=== PATIENT | female | born 1970 | race Caucasian/White ===

== ENCOUNTER 2017-12-27 20:13 | Emergency (ER) | payer BC ==
[~2017-12-27] VITALS: Ht 172.7 cm; Wt 88.5 kg
[2017-12-27] MEDS ORDERED: ONDANSETRON ODT 4 MG ONE (21:11)
[2017-12-27] MEDS ORDERED: MORPHINE SULFATE 4 MG/ML, 1ML ONE (21:11)
[2017-12-27 21:28] LABS: ALANINE AMINOTRANSFERASE 19 U/L (12-78); ALBUMIN 3.7 g/dL (3.4-5.0); ANION GAP 7 mmol/L (5-15); CALCIUM 8.2 mg/dL (8.5-10.1); CHLORIDE 110 mmol/L (98-107); CREATININE 0.77 mg/dL (0.55-1.02)
[2017-12-27 21:29] LABS: BASOPHILS # (AUTO) 0.08 x10^3/uL (0-0.1); BASOPHILS % (AUTO) 1 % (0-1); EOSINOPHILS # (AUTO) 0.56 x10^3/uL (0-0.4); EOSINOPHILS % (AUTO) 5 % (1-7); LYMPHOCYTES # (AUTO) 3.36 x10^3/uL (1-3.4); LYMPHOCYTES % (AUTO) 28 % (22-44); MD NO; MEAN CORPUSCULAR HEMOGLOBIN 31.6 pg (27.0-34.8); MEAN CORPUSCULAR HGB CONC 33.8 g/dL (32.4-35.8); MEAN CORPUSCULAR VOLUME 93.6 fL (80-100); MEAN PLATELET VOLUME 10.5 fL (7.4-10.4); MONOCYTES # (AUTO) 0.66 x10^3/uL (0.2-0.8); MONOCYTES % (AUTO) 5 % (2-9); NEUTROPHILS # (AUTO) 7.51 x10^3/uL (1.8-6.8); NEUTROPHILS % (AUTO) 62 % (42-75); PLATELET COUNT 281 x10^3/uL (130-400); RED CELL DISTRIBUTION WIDTH 15.3 % (9.6-15.2)
[2017-12-27 21:30] LABS: MICROSCOPIC NOT IND
[2017-12-27] MEDS ORDERED: SODIUM CHLORIDE FLUSH 10ML SYR IVF ONE (21:30)
[2017-12-27] MEDS ORDERED: ONDANSETRON ODT 4 MG PO ONE (21:30)
[2017-12-27] MEDS ORDERED: MORPHINE SULFATE 4 MG/ML, 1ML IVPush PRN (21:30)
[2017-12-27 21:31] LABS: ALKALINE PHOSPHATASE 87 U/L (45-117); BILIRUBIN,TOTAL 0.2 mg/dL (0.2-1.0); TOTAL PROTEIN 6.7 g/dL (6.4-8.2)
[2017-12-27 21:34] LABS: CULTURE INDICATED? NO
[2017-12-27] MEDS ORDERED: LACT1CAP37 PO (21:42)
[2017-12-27] MEDS ORDERED: DIPH1TAB PO (21:42)
[2017-12-27] MEDS ORDERED: OXYC-302 PO (21:42)
[2017-12-27] MEDS ORDERED: PARO30TA3 PO (21:42)
[2017-12-27 22:40] VITALS: BP 123/82
== END 2017-12-27 23:10 | disposition home or self-care (01) ==
LOC: ED 23:00
DX: R10.13 Epigastric pain (principal); R50.9 Fever, unspecified; R19.7 Diarrhea, unspecified; G89.29 Other chronic pain
CPT/HCPCS: 36415; 74021; 76700; 80053; 81003; 83690; 85025; 96374; 99285; Q0162

== ENCOUNTER 2018-10-16 10:07 | Inpatient (IN) | payer BC ==
[~2018-10-16] VITALS: Ht 166.4 cm; Wt 86.7 kg
[~2018-10-16 10:07] MED LIST: ACET-1600 PO; ALPR-475 PO; AMOX1TAB64 PO; BUPIVACAINE/EPI 0.5% 1:200K ONE; DIPH1TAB PO; ENOXAPARIN 40 MG/0.4 ML SQ SCH; FLUORESCEIN SODIUM 500 MG/5 ML ONE; INDOCYANINE GREEN 25 MG VIAL ONE; LACT1CAP37 PO; ONDA4TAB7 PO; OXYC-302 PO; PARO30TA3 PO; PARO40TA61 PO; THRIVE PO
[2018-10-16] MEDS ORDERED: LACTATED RINGERS 1,000 ML IV SCH (10:40)
[2018-10-16 11:05] VITALS: BP 106/72
[2018-10-16] MEDS ORDERED: GABAPENTIN 300 MG CAPSULE PO ONE (11:30)
[2018-10-16] MEDS ORDERED: ACETAMINOPHEN 500 MG TABLET PO ONE (11:30)
[2018-10-16] MEDS ORDERED: OxyconTIN ER 20 MG TAB.ER PO ONE (11:30)
[2018-10-16] MEDS ORDERED: FAMOTIDINE 20 MG/2 ML IVPush ONE (11:30)
[2018-10-16] MEDS ORDERED: FENTANYL PF 250 MCG/5ML ONE (11:36)
[2018-10-16] MEDS ORDERED: MIDAZOLAM 1 MG/ML, 2ML ONE (11:36)
[2018-10-16] MEDS ORDERED: LABETALOL 5 MG/ML SYRINGE IV PRN (14:00)
[2018-10-16] MEDS ORDERED: hydrALAzine 20 MG/ML, 1ML IV PRN (14:00)
[2018-10-16] MEDS ORDERED: MEPERIDINE/PF 25MG/0.5ML IVPush PRN (14:00)
[2018-10-16] MEDS ORDERED: OXYcodone 5 MG/5 ML ORAL.SOL UDC PO PRN (14:00)
[2018-10-16] MEDS ORDERED: PROMETHAZINE 25 MG/ML, 1ML IV PRN (14:00)
[2018-10-16] MEDS ORDERED: ONDANSETRON 2MG/ML, 2ML IV PRN ×2 (14:00→19:00)
[2018-10-16] MEDS ORDERED: MIDAZOLAM 1 MG/ML, 2ML IV PRN (14:00)
[2018-10-16] MEDS ORDERED: CEFOTETAN PMX 1GM/50ML 50 ML ONE ×2 (14:58)
[2018-10-16] MEDS ORDERED: ONDANSETRON 2MG/ML, 2ML ONE (14:58)
[2018-10-16] MEDS ORDERED: PROPOFOL 10 MG/ML, 20ML ONE ×2 (14:58)
[2018-10-16] MEDS ORDERED: ROCURONIUM 10MG/ML,5ML ONE ×2 (14:58)
[2018-10-16] MEDS ORDERED: DEXAMETHASONE 4 MG/ML, 1ML ONE (14:58)
[2018-10-16] MEDS ORDERED: GLYCOPYRROLATE 0.2MG/1ML, 5ML ONE (15:01)
[2018-10-16] MEDS ORDERED: NEOSTIGMINE 1 MG/ML, 10ML ONE (15:01)
[2018-10-16] MEDS ORDERED: FENTANYL PF 100 MCG/2ML ONE (15:22)
[2018-10-16] MEDS ORDERED: HYDROmorphone 1 MG/ML, 1ML VIAL ONE (15:22)
[2018-10-16] MEDS: HYDROmorphone 2 MG/ML, 1ML IVPush PRN ×2 (15:27→15:43)
[2018-10-16] MEDS: FENTANYL PF 100 MCG/2ML IV PRN ×2 (15:33→15:58)
[2018-10-16] MEDS ORDERED: OXYcodone 5 MG/5 ML ORAL.SOL UDC ONE (15:40)
[2018-10-16] MEDS ORDERED: KETOROLAC 30 MG/1 ML ONE (15:40)
[2018-10-16] MEDS ORDERED: MEPERIDINE/PF 25MG/ML,1ML ONE (16:04)
[2018-10-16] MEDS ORDERED: LORazepam 2 MG/ML, 1ML IVPush PRN (19:00)
[2018-10-16] MEDS ORDERED: DEXAMETHASONE 4 MG/ML, 1ML IVPush PRN (19:00)
[2018-10-16] MEDS ORDERED: TRAZODONE 50MG TABLET PO PRN (19:00)
[2018-10-16] MEDS ORDERED: HALOPERIDOL 5 MG/ML IVPush PRN (19:00)
[2018-10-16] MEDS ORDERED: SCOPOLAMINE PATCH, 1.5MG PATCH.TD72 TD PRN (19:00)
[2018-10-16] MEDS ORDERED: DIPHENHYDRAMINE 50 MG/ML, 1ML IVPush PRN (19:00)
[2018-10-16] MEDS ORDERED: LORazepam 1MG TABLET PO PRN (19:00)
[2018-10-16] MEDS ORDERED: CALCIUM CARBONATE 500 MG TAB.CHEW PO PRN (19:00)
[2018-10-16] MEDS ORDERED: DIPHENHYDRAMINE 25 MG CAPSULE PO PRN (19:00)
[2018-10-16] MEDS: OXYcodone IR 5MG TABLET PO PRN ×2 (19:54→23:01)
[2018-10-16] MEDS: ACETAMINOPHEN 500 MG TABLET PO SCH (19:54)
[2018-10-16] MEDS: LACTATED RINGERS 1,000 ML IV SCH (20:05)
[2018-10-16] MEDS: MORPHINE SULFATE 4 MG/ML, 1ML IVPush PRN (20:44)
[2018-10-16] MEDS: PAROXETINE 20 MG TABLET PO SCH (21:25)
[2018-10-16 21:54] VITALS: BP 100/60
[2018-10-16] MEDS: KETOROLAC 30 MG/1 ML IVPush SCH (22:07)
[2018-10-16 23:06] VITALS: BP 96/56
[2018-10-17] MEDS: ACETAMINOPHEN 500 MG TABLET PO SCH ×4 (01:00→18:33)
[2018-10-17] MEDS: MORPHINE SULFATE 4 MG/ML, 1ML IVPush PRN ×5 (01:00→20:54)
[2018-10-17] MEDS: OXYcodone IR 5MG TABLET PO PRN ×7 (02:04→22:51)
[2018-10-17 03:54] LABS: BASOPHILS # (AUTO) 0.02 x10^3/uL (0-0.1); BASOPHILS % (AUTO) 0 % (0-1); EOSINOPHILS % (AUTO) 0 % (1-7); LYMPHOCYTES # (AUTO) 1.05 x10^3/uL (1-3.4); LYMPHOCYTES % (AUTO) 9 % (22-44); MD NO; MEAN CORPUSCULAR HEMOGLOBIN 32.4 pg (27.0-34.8); MEAN CORPUSCULAR HGB CONC 33.9 g/dL (32.4-35.8); MEAN CORPUSCULAR VOLUME 95.5 fL (80-100); MONOCYTES # (AUTO) 0.47 x10^3/uL (0.2-0.8); MONOCYTES % (AUTO) 4 % (2-9); NEUTROPHILS # (AUTO) 9.74 x10^3/uL (1.8-6.8); NEUTROPHILS % (AUTO) 86 % (42-75); PLATELET COUNT 219 x10^3/uL (130-400); RED BLOOD COUNT 3.56 x10^6/uL (3.82-5.3); RED CELL DISTRIBUTION WIDTH 13.7 % (9.6-15.2)
[2018-10-17 03:55] VITALS: BP 98/63
[2018-10-17 04:01] LABS: ALBUMIN 3.6 g/dL (3.4-5.0); ANION GAP 6 mmol/L (5-15); CALCIUM 8.9 mg/dL (8.5-10.1); CHLORIDE 110 mmol/L (98-107); CREATININE 0.88 mg/dL (0.55-1.02)
[2018-10-17] MEDS: KETOROLAC 30 MG/1 ML IVPush SCH ×4 (04:02→21:40)
[2018-10-17 06:52] VITALS: BP 100/63
[2018-10-17] MEDS: ENOXAPARIN 40 MG/0.4 ML SQ SCH (08:17)
[2018-10-17 14:16] VITALS: BP 96/61
[2018-10-17] MEDS: LACTATED RINGERS 1,000 ML IV SCH (15:01)
[2018-10-17 20:22] VITALS: BP 101/65
[2018-10-17] MEDS: PAROXETINE 20 MG TABLET PO SCH (20:54)
[2018-10-18] MEDS: ACETAMINOPHEN 500 MG TABLET PO SCH ×2 (00:52→06:42)
[2018-10-18] MEDS: KETOROLAC 30 MG/1 ML IVPush SCH ×2 (03:49→09:38)
[2018-10-18] MEDS: OXYcodone IR 5MG TABLET PO PRN ×3 (03:49→10:41)
[2018-10-18 04:28] LABS: BASOPHILS # (AUTO) 0.05 x10^3/uL (0-0.1); BASOPHILS % (AUTO) 1 % (0-1); EOSINOPHILS # (AUTO) 0.34 x10^3/uL (0-0.4); EOSINOPHILS % (AUTO) 4 % (1-7); LYMPHOCYTES % (AUTO) 31 % (22-44); MD NO; MEAN CORPUSCULAR HEMOGLOBIN 32.1 pg (27.0-34.8); MEAN CORPUSCULAR HGB CONC 33.6 g/dL (32.4-35.8); MEAN CORPUSCULAR VOLUME 95.6 fL (80-100); MEAN PLATELET VOLUME 9.8 fL (7.4-10.4); MONOCYTES # (AUTO) 0.52 x10^3/uL (0.2-0.8); MONOCYTES % (AUTO) 6 % (2-9); NEUTROPHILS # (AUTO) 5.47 x10^3/uL (1.8-6.8); NEUTROPHILS % (AUTO) 60 % (42-75); PLATELET COUNT 197 x10^3/uL (130-400); RED BLOOD COUNT 3.24 x10^6/uL (3.82-5.3); RED CELL DISTRIBUTION WIDTH 13.9 % (9.6-15.2)
[2018-10-18 04:34] LABS: ALBUMIN 3.1 g/dL (3.4-5.0); ANION GAP 6 mmol/L (5-15); CALCIUM 8.3 mg/dL (8.5-10.1); CHLORIDE 109 mmol/L (98-107); CREATININE 1.11 mg/dL (0.55-1.02)
[2018-10-18 05:13] VITALS: BP_SYST 80; BP_SYST 82; BP_DIAS 40; BP_DIAS 46
[2018-10-18 09:35] VITALS: BP 95/59
[2018-10-18] MEDS: ENOXAPARIN 40 MG/0.4 ML SQ SCH (09:35)
[2018-10-18] MEDS: MORPHINE SULFATE 4 MG/ML, 1ML IVPush PRN (12:06)
[2018-10-18] MEDS ORDERED: OXYC1TAB7 PO (12:32)
== END 2018-10-18 13:20 | disposition home or self-care (01) | DRG 331 ==
LOC: ORIP 10:07 → 4NOR 17:00
PROVIDERS: ADMIT Colon & Rectal Surgery; ATTEND Colon & Rectal Surgery
PROC: 0DBN4ZZ Excision of Sigmoid Colon, Percutaneous Endoscopic Approach (ICD-10-PCS; 2018-10-16)
PROC: 0DBP4ZZ Excision of Rectum, Percutaneous Endoscopic Approach (ICD-10-PCS; 2018-10-16)
PROC: 8E0W4CZ Robotic Assisted Procedure of Trunk Region, Percutaneous Endoscopic Approach (ICD-10-PCS; 2018-10-16)
PROC: 0DNU4ZZ Release Omentum, Percutaneous Endoscopic Approach (ICD-10-PCS; principal; 2018-10-16 12:30)
DX: K57.92 Diverticulitis of intestine, part unspecified, without perforation or abscess without bleeding (principal); F41.9 Anxiety disorder, unspecified; F32.9 Major depressive disorder, single episode, unspecified; M19.90 Unspecified osteoarthritis, unspecified site; Z87.891 Personal history of nicotine dependence
CPT/HCPCS: 36415; J3490; 80048; 82040; 83735; 85025; 86850; 86900; 88305; 88307; C1729; G0378; J1100; J1170; J1650; J1885; J2175; J2250; J2405; J2704; J2710; J3010; J7120

== ENCOUNTER 2019-05-14 13:08 | Day surgery (SDC) | payer BC ==
[~2019-05-14] VITALS: Ht 165.1 cm; Wt 99.6 kg
[~2019-05-14 13:08] MED LIST changes: -ALPR-475 PO; +ALPR0.5T7 PO; -BUPIVACAINE/EPI 0.5% 1:200K ONE; -ENOXAPARIN 40 MG/0.4 ML SQ SCH; -FLUORESCEIN SODIUM 500 MG/5 ML ONE; -INDOCYANINE GREEN 25 MG VIAL ONE; +OXYC1TAB7 PO
[2019-05-14 13:36] VITALS: BP 144/83
[2019-05-14] MEDS ORDERED: LACTATED RINGERS 1,000 ML IV SCH (13:51)
[2019-05-14] MEDS ORDERED: GABA300C10 PO (13:55)
[2019-05-14] MEDS ORDERED: QUET100T4 PO (13:55)
[2019-05-14] MEDS ORDERED: IBUP-1223 PO (13:55)
[2019-05-14] MEDS ORDERED: OXYC-307 PO (13:56)
[2019-05-14] MEDS ORDERED: SCOPOLAMINE PATCH, 1.5MG PATCH.TD72 TD ONE (14:00)
[2019-05-14] MEDS ORDERED: ACETAMINOPHEN 500 MG TABLET PO ONE (14:00)
[2019-05-14] MEDS ORDERED: GABAPENTIN 300 MG CAPSULE PO ONE (14:00)
[2019-05-14] MEDS ORDERED: LIDOCAINE 1%-EPI 1:100K, 20ML ONE (14:36)
[2019-05-14] MEDS ORDERED: ROPIvacaine/PF 0.5%, 30 ML ONE (14:36)
[2019-05-14 14:39] LABS: INTERNATIONAL NORMALIZED RATIO 0.96 (0.93-1.1); PROTHROMBIN TIME 10.1 Seconds (9.6-11.5)
[2019-05-14 14:40] LABS: ALANINE AMINOTRANSFERASE 15 U/L (12-78); ALBUMIN 4.1 g/dL (3.4-5.0); ANION GAP 6 mmol/L (5-15); CALCIUM 8.9 mg/dL (8.5-10.1); CHLORIDE 111 mmol/L (98-107)
[2019-05-14 14:43] LABS: ALKALINE PHOSPHATASE 80 U/L (45-117); BILIRUBIN,TOTAL 0.3 mg/dL (0.2-1.0); TOTAL PROTEIN 7.6 g/dL (6.4-8.2)
[2019-05-14] MEDS ORDERED: MIDAZOLAM 1 MG/ML, 2ML ONE (14:45)
[2019-05-14] MEDS ORDERED: FENTANYL PF 100 MCG/2ML ONE ×2 (14:45→15:35)
[2019-05-14] MEDS ORDERED: PROPOFOL 10 MG/ML, 20ML ONE (14:55)
[2019-05-14] MEDS ORDERED: CEFAZOLIN 1,000 MG ONE (14:55)
[2019-05-14] MEDS ORDERED: ONDANSETRON 2MG/ML, 2ML ONE (14:55)
[2019-05-14] MEDS ORDERED: DEXAMETHASONE 4 MG/ML, 1ML ONE (14:55)
[2019-05-14] MEDS ORDERED: FENTANYL PF 250 MCG/5ML ONE (15:03)
[2019-05-14 15:22] LABS: BASOPHILS # (AUTO) 0.02 x10^3/uL (0-0.1); BASOPHILS % (AUTO) 0 % (0-1); EOSINOPHILS % (AUTO) 8 % (1-7); LYMPHOCYTES # (AUTO) 1.92 x10^3/uL (1-3.4); LYMPHOCYTES % (AUTO) 30 % (22-44); MD NO; MEAN CORPUSCULAR HEMOGLOBIN 31.1 pg (27.0-34.8); MEAN CORPUSCULAR HGB CONC 32.5 g/dL (32.4-35.8); MEAN CORPUSCULAR VOLUME 95.5 fL (80-100); MEAN PLATELET VOLUME 9.9 fL (7.4-10.4); MONOCYTES # (AUTO) 0.49 x10^3/uL (0.2-0.8); MONOCYTES % (AUTO) 8 % (2-9); NEUTROPHILS # (AUTO) 3.58 x10^3/uL (1.8-6.8); NEUTROPHILS % (AUTO) 55 % (42-75); PLATELET COUNT 288 x10^3/uL (130-400); RED BLOOD COUNT 3.69 x10^6/uL (3.82-5.3); RED CELL DISTRIBUTION WIDTH 14.3 % (9.6-15.2)
[2019-05-14] MEDS ORDERED: PROMETHAZINE 25 MG SUPP PR PRN (15:30)
[2019-05-14] MEDS ORDERED: ONDANSETRON 2MG/ML, 2ML IV PRN (15:30)
[2019-05-14] MEDS ORDERED: LORazepam 2 MG/ML, 1ML IVPush PRN (15:30)
[2019-05-14] MEDS ORDERED: OXYcodone 5 MG/5 ML ORAL.SOL UDC PO PRN (15:30)
[2019-05-14] MEDS ORDERED: ONDANSETRON ODT 8 MG PO PRN (15:30)
[2019-05-14] MEDS ORDERED: PROMETHAZINE 25 MG/ML, 1ML IV PRN (15:30)
[2019-05-14] MEDS ORDERED: MEPERIDINE/PF 25MG/ML,1ML IVPush PRN (15:30)
[2019-05-14] MEDS ORDERED: OXYcodone 5 MG/5 ML ORAL.SOL UDC ONE (15:35)
[2019-05-14] MEDS: FENTANYL PF 100 MCG/2ML IV PRN ×2 (15:37→15:45)
[2019-05-14] MEDS ORDERED: HYDROmorphone 1 MG/ML, 1ML VIAL ONE ×2 (15:52→16:14)
[2019-05-14] MEDS: HYDROmorphone 2 MG/ML, 1ML IVPush PRN ×3 (15:54→16:05)
== END 2019-05-14 17:57 | disposition home or self-care (01) ==
LOC: OUT 13:08
PROVIDERS: ATTEND Orthopaedic Surgery
DX: S83.241A Other tear of medial meniscus, current injury, right knee, initial encounter (principal); M65.861 Other synovitis and tenosynovitis, right lower leg; F32.9 Major depressive disorder, single episode, unspecified; F41.9 Anxiety disorder, unspecified; Z79.01 Long term (current) use of anticoagulants; Z79.891 Long term (current) use of opiate analgesic; Z79.899 Other long term (current) drug therapy; Z87.891 Personal history of nicotine dependence; Z88.8 Allergy status to other drugs, medicaments and biological substances; X58.XXXA Exposure to other specified factors, initial encounter; Y93.89 Activity, other specified; Y92.89 Other specified places as the place of occurrence of the external cause; Y99.8 Other external cause status
CPT/HCPCS: 29881; 36415; 80053; 85025; 85610; 85730; J0690; J1100; J1170; J2250; J2405; J2704; J2795; J3010; J3490; J7120

== ENCOUNTER → 2019-08-26 | Outpatient (CLI) | payer BC ==
[~2019-08-26] MED LIST changes: +GABA300C10 PO; +IBUP-1223 PO; +OXYC-307 PO; +QUET100T4 PO
== END | disposition home or self-care (01) ==
LOC: CFH 10:09
PROVIDERS: ATTEND Orthopaedic Surgery
DX: M71.21 Synovial cyst of popliteal space [Baker], right knee (principal); M25.561 Pain in right knee; R22.41 Localized swelling, mass and lump, right lower limb

== ENCOUNTER 2019-11-20 14:55 | Inpatient (IN) | payer BC ==
[~2019-11-20] VITALS: Ht 170.2 cm; Wt 103.9 kg
[2019-11-20] MEDS ORDERED: PROPOFOL 100 ML IV ONE (15:16)
[2019-11-20] MEDS ORDERED: PROPOFOL 100 ML IV PRN (15:30)
[2019-11-20] MEDS: SODIUM CHLORIDE 0.9% 1,000 ML IV SCH (15:45)
[2019-11-20 15:58] LABS: BASOPHILS # (AUTO) 0.04 x10^3/uL (0-0.1); BASOPHILS % (AUTO) 0 % (0-1); EOSINOPHILS # (AUTO) 0.01 x10^3/uL (0-0.4); EOSINOPHILS % (AUTO) 0 % (1-7); LYMPHOCYTES # (AUTO) 1.65 x10^3/uL (1-3.4); LYMPHOCYTES % (AUTO) 13 % (22-44); MD NO; MEAN CORPUSCULAR HEMOGLOBIN 30.2 pg (27.0-34.8); MEAN CORPUSCULAR VOLUME 91.4 fL (80-100); MEAN PLATELET VOLUME 10.4 fL (7.4-10.4); MONOCYTES # (AUTO) 0.48 x10^3/uL (0.2-0.8); MONOCYTES % (AUTO) 4 % (2-9); NEUTROPHILS # (AUTO) 10.68 x10^3/uL (1.8-6.8); NEUTROPHILS % (AUTO) 83 % (42-75); PLATELET COUNT 172 x10^3/uL (130-400); RED BLOOD COUNT 3.79 x10^6/uL (3.82-5.3); RED CELL DISTRIBUTION WIDTH 15.5 % (9.6-15.2)
[2019-11-20] MEDS ORDERED: morphine SULFATE 10 MG/ML, 1ML IVPush PRN (16:00)
[2019-11-20] MEDS ORDERED: hydrALAzine 20 MG/ML, 1ML IVPush PRN (16:00)
[2019-11-20] MEDS ORDERED: POLYETHYLENE GLYCOL 17 GM PACKET PO PRN (16:00)
[2019-11-20] MEDS ORDERED: BISACODYL 10 MG SUPP PR PRN ×2 (16:00→18:30)
[2019-11-20] MEDS ORDERED: HEPARIN 5,000 UNITS/ML, 1ML SQ SCH ×2 (16:00→18:30)
[2019-11-20] MEDS ORDERED: LABETALOL 5MG/ML, 20ML IVPush PRN (16:00)
[2019-11-20] MEDS ORDERED: LORazepam 2 MG/ML, 1ML IVPush PRN (16:00)
[2019-11-20] MEDS ORDERED: ONDANSETRON 2MG/ML, 2ML IVPush PRN (16:00)
[2019-11-20 16:06] LABS: ALBUMIN 3.8 g/dL (3.4-5.0); ANION GAP 8 mmol/L (5-15); CALCIUM 8.1 mg/dL (8.5-10.1); CHLORIDE 110 mmol/L (98-107)
--- NOTE | 2019-11-20 16:10 | NUR ---
LATE ENTRY FOR ADMIT. PT ANGE RAMOS FROM [facility]. PER MEDIC RPT PT WAS "NOT ACTING RIGHT" PER SPOUSE LAST NIGHT, WHEN HE ATTEMPTED TO WAKE HER THIS MORNING WHE WAS UNARROUSABLE. EMS WAS CALLED. PT OBTUNDED, NO EYE OPENING, POSTURING. SP02 50%, PT WAS INTUBATED WITH ORAL ETT 7.5 22 @ LIP. CT WAS DONE AT [facility] = WNL. PT WAS TESTED FOR COVID RUBBER TRIMMER AND ANTBIOTICS WERE INITIATED. ON ARRIVAL HERE, THE PIPERACILLIN 4.5GM WAS STILL INFUSING. PT WAS ON KETAMINE FOR SEDATION IN ROUTE AND WAS ALSO GIVEN ROCURONIUM BY MEDICS IN FLIGHT. PT TO ED RM 41, TRANSFERED TO [facility] AND PLACED ON VENTILATOR W/O DIFFICULTY. INTIAL VS STABLE NOTED. HAWK CATH IN PLACE RUBBER TRIMMER WITH UOP OF 550ML. NO NGT RUBBER TRIMMER, 18FR ORAL NGT PLACED W/O DIFFICULTY AND PLACED TO LIS. SCAN AMT OF WATERY BROWN OUTPUT NOTED. BI LAT WRIST RESTRAINTS PLACED, RECTAL TEMP PROBE INSERTED WITH INITIAL TEMP OF 100.6. DR VILLEGAS AT BEDSIDE, POC, ASSESSMENT REVIEWED, ORDERS REC'D, AND QUESTIONS ANSWERED.
[2019-11-20] MEDS ORDERED: HEPARIN 5,000 UNITS/ML, 1ML ONE (16:20)
[2019-11-20] MEDS ORDERED: CEFTRIAXONE PMX 1GM/50ML 50 ML ONE (16:20)
[2019-11-20 16:22] LABS: D-DIMER (DIC) 9.01 ug/mlFEU (0.00-0.52); PROTIME 14.5 Seconds (9.6-11.5)
[2019-11-20 16:25] LABS: ALANINE AMINOTRANSFERASE 3265 U/L (12-78); ALKALINE PHOSPHATASE 90 U/L (45-117); BILIRUBIN,TOTAL 0.7 mg/dL (0.2-1.0)
[2019-11-20] MEDS: CEFTRIAXONE PMX 1GM/50ML 50 ML IV SCH (16:30)
--- NOTE | 2019-11-20 16:44 | NUR ---
BREAK RN: PT CURRENTLY RESTING ON Noknoker AND APPEARS TO BE TOLERATING INTUBATION AND SEDATION WELL. NO TEARING OR RESTLESSNESS NOTED AT THIS TIME. PT ON CONT BP, CARDIAC AND O2 MONITORS. BLOOD CULTURES X 2 STARTED PRIOR TO STARTING ABX. ATTEMPTED TO FIND IN LOBBY, NO ONE WAITING IN LOBBY OR IN RESTROOMS.
[2019-11-20] MEDS: AZITHROMYCIN 500 MG in SODIUM CHLORIDE 0.9% 250 ML IV SCH (16:56)
[2019-11-20 17:33] LABS: FREE T4 (FREE THYROXINE) 0.81 ng/dL (0.76-1.46)
--- NOTE | 2019-11-20 17:46 | NUR ---
SPOKE WITH PTS VIA PHONE, POC DISCUSSED AND QUESTIONS ANSWERED. ADVISED THAT DOCTORS HAVE A STRONG SUSPICION FOR HIS HAVING COVID. I ADVISED HIM TO SELF ISSOLATE AND CONTACT HIS PMD IF HE IS HAVING ANY SYMPTOMS. SAID THAT [facility] HAS HAD NO POSITIVE TESTS BUT THAT HIS WORKS AT [employer] IN [place]. TAMIKA REQUESTED THAT WE CONTACT HIM WHEN HIS IS MOVED TO THE ICU. HE VERBALIZED UNDERSTANDING OF THE NO VISITOR POLICY AND I ASSURED HIM THAT HE CAN CALL AT ANYTIME AND WE WILL KEEP HIM INFORMED.
--- NOTE | 2019-11-20 17:52 | NUR ---
PT WITH SPONTANEOUS MOVEMENT OF ALL EXTREMETIES, NO EYE OPENING OR FOLLOWING COMMANDS. VERBAL REASURANCE PROVIDED BY RN BUT NO RESPONSE NOTED. PROPOFOL GTT INCREASED NOTED.
[2019-11-20] MEDS ORDERED: DEXTROSE 50%, 50ML SYRINGE IVPush PRN (18:30)
[2019-11-20] MEDS ORDERED: SENNA/DOCUSATE TABLET NG PRN (18:30)
[2019-11-20] MEDS ORDERED: SENNA 176 MG/5 ML ORAL SOL NG PRN (18:30)
[2019-11-20] MEDS ORDERED: FAMOTIDINE 20 MG/2 ML IV SCH (18:30)
[2019-11-20] MEDS ORDERED: PHARMACY MAY ADJ FOR RENAL FX MC SCH (18:30)
[2019-11-20] MEDS ORDERED: GLUCAGON 1 MG IM PRN (18:30)
[2019-11-20] MEDS ORDERED: LACTULOSE 20 GM/30 ML UDC NG PRN (18:30)
[2019-11-20] MEDS ORDERED: DEXTROSE 4 GM TAB.CHEW PO PRN (18:30)
[2019-11-20] MEDS ORDERED: FENTANYL PF 100 MCG/2ML IVPush PRN (18:30)
[2019-11-20] MEDS ORDERED: ASPIRIN 300 MG SUPP PR ONE (18:30)
[2019-11-20] MEDS ORDERED: LIDOCAINE-MPF 1%, 2ML ENDO PRN (18:30)
[2019-11-20] MEDS ORDERED: NOREPINEPHRINE 8 MG in SODIUM CHLORIDE 0.9% 242 ML IV PRN (18:30)
--- NOTE | 2019-11-20 18:39 | NUR ---
CALLED PTS INFORMED HIM THAT HIS IS MOVING TO ICU BED 11. I TOLD HIM THAT HE CAN CALL ICU AT ANYTIME BUT FOR NOW IT WOULD BE BETTER IF HE COULD CALL AFTER 9PM TO ALOW THE FRENCH DRAWER TO ASSESS HIS AND REVIEW ORDERS.
[2019-11-20] MEDS: ALBUTEROL/IPRATROPIUM 2.5MG/0.5MG, 3 ML INLINE SCH ×2 (19:00→22:10)
[2019-11-20] MEDS ORDERED: FAMOTIDINE 20 MG/2 ML IVPush SCH (21:00)
[2019-11-20] MEDS: SODIUM CHLORIDE FLUSH 10ML SYR IVF SCH (22:43)
[2019-11-21] MEDS: PROPOFOL 100 ML IV PRN ×6 (00:22→20:22)
[2019-11-21] MEDS: HEPARIN 5,000 UNITS/ML, 1ML SQ SCH ×3 (00:23→16:53)
[2019-11-21] MEDS: ALBUTEROL/IPRATROPIUM 2.5MG/0.5MG, 3 ML INLINE SCH ×6 (03:10→22:35)
[2019-11-21 04:00] VITALS: BP 154/99
[2019-11-21 04:26] LABS: MICROSCOPIC INDICATED
[2019-11-21] MEDS: SODIUM CHLORIDE 0.9% 1,000 ML IV SCH (04:26)
[2019-11-21 04:37] LABS: AMPHETAMINE SCREEN, URINE Negative (Negative); BARBITURATE SCREEN, URINE Negative (Negative); BENZODIAZEPINE SCREEN, URINE Positive (Negative); CANNABINOID SCREEN, URINE Negative (Negative); COCAINE SCREEN, URINE Negative (Negative); METHADONE SCREEN, URINE Negative (Negative); OPIATE SCREEN, URINE Negative (Negative)
[2019-11-21 05:25] LABS: MEAN CORPUSCULAR HGB CONC 33.6 g/dL (32.4-35.8); MEAN CORPUSCULAR VOLUME 92.3 fL (80-100); MEAN PLATELET VOLUME 10.3 fL (7.4-10.4); PLATELET COUNT 178 x10^3/uL (130-400); RED BLOOD COUNT 3.69 x10^6/uL (3.82-5.3); RED CELL DISTRIBUTION WIDTH 15.2 % (9.6-15.2)
[2019-11-21 05:44] LABS: ALANINE AMINOTRANSFERASE 2498 U/L (12-78); ALKALINE PHOSPHATASE 82 U/L (45-117); BILIRUBIN,TOTAL 0.5 mg/dL (0.2-1.0); TOTAL PROTEIN 6.3 g/dL (6.4-8.2)
[2019-11-21 06:30] LABS: ANION GAP 8 mmol/L (5-15); CALCIUM 7.7 mg/dL (8.5-10.1); CHLORIDE 114 mmol/L (98-107); CREATININE 1.01 mg/dL (0.55-1.02)
[2019-11-21 06:31] LABS: ALBUMIN 3.3 g/dL (3.4-5.0)
[2019-11-21 06:43] LABS: MD YES
[2019-11-21 06:44] VITALS: BP 124/82
[2019-11-21 07:18] LABS: BAND#(MANUAL) 0.54 x10^3/uL; BANDS%(MANUAL) 5 % (0-7); LYMPH#(MANUAL) 1.84 x10^3/uL (1-3.4); LYMPHS% (MANUAL) 17 % (22-44); SEG#(MANUAL) 8.42 x10^3/uL (1.8-6.8); SEGS% (MANUAL) 78 % (42-75)
[2019-11-21 07:19] LABS: <PLATELET ESTIMATE> ADEQUATE; LARGE PLATELETS 1+; POLYCHROMASIA 1+
[2019-11-21] MEDS ORDERED: SODIUM PHOSPHATE 20 MMOL in SODIUM CHLORIDE 0.9% 500 ML IV ONE (07:30)
[2019-11-21] MEDS ORDERED: SENNA/DOCUSATE TABLET PO SCH (09:00)
[2019-11-21] MEDS: FAMOTIDINE 20 MG/2 ML IVPush SCH (09:07)
[2019-11-21] MEDS: SODIUM CHLORIDE FLUSH 10ML SYR IVF SCH ×2 (09:07→20:22)
[2019-11-21] MEDS: CEFTRIAXONE PMX 1GM/50ML 50 ML IV SCH (16:52)
--- NOTE | 2019-11-21 17:01 | NUR ---
TF RECOMMENDATION IF NEEDED: on propofol, promote at 55 ml/hr; off propofol, promote at 95 ml/hr Addendum: 11/21/19 at [address] Amended: Links added.
[2019-11-21] MEDS ORDERED: MIDAZOLAM 1 MG/ML, 5ML ONE (17:42)
[2019-11-21] MEDS: AZITHROMYCIN 500 MG in SODIUM CHLORIDE 0.9% 250 ML IV SCH (17:49)
[2019-11-21] MEDS ORDERED: MIDAZOLAM 1 MG/ML, 5ML IVPush ONE (18:00)
[2019-11-21] MEDS: MIDAZOLAM HCL 50 MG in SODIUM CHLORIDE 0.9% 40 ML IV PRN (20:23)
[2019-11-22] MEDS: SODIUM CHLORIDE 0.9% 1,000 ML IV SCH ×2 (00:58→08:55)
[2019-11-22] MEDS: HEPARIN 5,000 UNITS/ML, 1ML SQ SCH ×4 (00:58→23:38)
[2019-11-22] MEDS: ALBUTEROL/IPRATROPIUM 2.5MG/0.5MG, 3 ML INLINE SCH ×6 (02:40→22:30)
[2019-11-22] MEDS: PROPOFOL 100 ML IV PRN ×2 (03:27→06:40)
[2019-11-22 05:18] LABS: BASOPHILS # (AUTO) 0.02 x10^3/uL (0-0.1); BASOPHILS % (AUTO) 0 % (0-1); EOSINOPHILS # (AUTO) 0.08 x10^3/uL (0-0.4); EOSINOPHILS % (AUTO) 1 % (1-7); LYMPHOCYTES # (AUTO) 1.33 x10^3/uL (1-3.4); LYMPHOCYTES % (AUTO) 14 % (22-44); MD NO; MEAN CORPUSCULAR HEMOGLOBIN 30.1 pg (27.0-34.8); MEAN CORPUSCULAR VOLUME 91.2 fL (80-100); MONOCYTES # (AUTO) 0.47 x10^3/uL (0.2-0.8); MONOCYTES % (AUTO) 5 % (2-9); NEUTROPHILS # (AUTO) 7.79 x10^3/uL (1.8-6.8); NEUTROPHILS % (AUTO) 80 % (42-75); PLATELET COUNT 168 x10^3/uL (130-400); RED BLOOD COUNT 3.42 x10^6/uL (3.82-5.3); RED CELL DISTRIBUTION WIDTH 14.9 % (9.6-15.2)
[2019-11-22 07:24] LABS: ANION GAP 7 mmol/L (5-15); CALCIUM 7.5 mg/dL (8.5-10.1); CHLORIDE 114 mmol/L (98-107); CREATININE 0.67 mg/dL (0.55-1.02)
[2019-11-22] MEDS: FAMOTIDINE 20 MG/2 ML IVPush SCH (08:48)
[2019-11-22] MEDS: SODIUM CHLORIDE FLUSH 10ML SYR IVF SCH ×2 (08:48→20:18)
[2019-11-22] MEDS ORDERED: FUROSEMIDE 40 MG/4 ML IV ONE (10:30)
[2019-11-22] MEDS: POTASSIUM CHLORIDE 10% 40 MEQ/30 ML UDC PO SCH ×2 (11:40→20:19)
[2019-11-22] MEDS: MIDAZOLAM HCL 50 MG in SODIUM CHLORIDE 0.9% 40 ML IV PRN ×2 (11:41→20:07)
[2019-11-22] MEDS: FENTANYL PF 1,000 MCG in SODIUM CHLORIDE 0.9% 80 ML IV PRN (11:42)
[2019-11-22] MEDS: CEFTRIAXONE PMX 1GM/50ML 50 ML IV SCH (17:14)
[2019-11-22] MEDS: AZITHROMYCIN 500 MG in SODIUM CHLORIDE 0.9% 250 ML IV SCH (20:09)
[2019-11-23] MEDS: MIDAZOLAM HCL 50 MG in SODIUM CHLORIDE 0.9% 40 ML IV PRN (00:10)
[2019-11-23] MEDS: FENTANYL PF 1,000 MCG in SODIUM CHLORIDE 0.9% 80 ML IV PRN ×2 (00:12→15:55)
[2019-11-23] MEDS: ALBUTEROL/IPRATROPIUM 2.5MG/0.5MG, 3 ML INLINE SCH ×4 (02:30→14:20)
[2019-11-23 04:29] LABS: BASOPHILS # (AUTO) 0.08 x10^3/uL (0-0.1); BASOPHILS % (AUTO) 1 % (0-1); EOSINOPHILS # (AUTO) 0.27 x10^3/uL (0-0.4); EOSINOPHILS % (AUTO) 2 % (1-7); LYMPHOCYTES # (AUTO) 2.24 x10^3/uL (1-3.4); LYMPHOCYTES % (AUTO) 19 % (22-44); MD NO; MEAN CORPUSCULAR HEMOGLOBIN 29.8 pg (27.0-34.8); MEAN CORPUSCULAR HGB CONC 32.4 g/dL (32.4-35.8); MEAN PLATELET VOLUME 9.6 fL (7.4-10.4); MONOCYTES # (AUTO) 0.59 x10^3/uL (0.2-0.8); MONOCYTES % (AUTO) 5 % (2-9); NEUTROPHILS % (AUTO) 73 % (42-75); PLATELET COUNT 220 x10^3/uL (130-400); RED BLOOD COUNT 3.81 x10^6/uL (3.82-5.3); RED CELL DISTRIBUTION WIDTH 14.6 % (9.6-15.2)
[2019-11-23 04:47] LABS: PREALBUMIN 11.5 mg/dL (20.0-40.0)
[2019-11-23] MEDS ORDERED: MIDAZOLAM IN 0.9 % SOD.CHLORID 100 ML IV PRN (05:30)
[2019-11-23] MEDS: MIDAZOLAM IN 0.9 % SOD.CHLORID 100 ML IV PRN ×2 (05:39→20:27)
[2019-11-23 06:30] LABS: CHLORIDE 112 mmol/L (98-107)
[2019-11-23 06:45] LABS: ALANINE AMINOTRANSFERASE 1024 U/L (12-78); ALBUMIN 3.2 g/dL (3.4-5.0); ALKALINE PHOSPHATASE 78 U/L (45-117); ANION GAP 8 mmol/L (5-15); BILIRUBIN,TOTAL 0.9 mg/dL (0.2-1.0); CREATININE 0.63 mg/dL (0.55-1.02); TOTAL PROTEIN 6.7 g/dL (6.4-8.2)
[2019-11-23] MEDS: HEPARIN 5,000 UNITS/ML, 1ML SQ SCH ×2 (08:35→15:59)
[2019-11-23] MEDS: POTASSIUM CHLORIDE 10% 40 MEQ/30 ML UDC PO SCH ×2 (08:35→20:26)
[2019-11-23] MEDS: FAMOTIDINE 20 MG/2 ML IVPush SCH (08:35)
[2019-11-23] MEDS: SODIUM CHLORIDE FLUSH 10ML SYR IVF SCH ×2 (08:36→20:27)
--- NOTE | 2019-11-23 11:59 | NUR ---
11/22 TF GOAL: VITAL HIGH PROTEIN @ 60ML/HR
[2019-11-23] MEDS: CEFTRIAXONE PMX 1GM/50ML 50 ML IV SCH (15:58)
[2019-11-24] MEDS: HEPARIN 5,000 UNITS/ML, 1ML SQ SCH ×3 (00:26→15:28)
[2019-11-24] MEDS: ALBUTEROL/IPRATROPIUM 2.5MG/0.5MG, 3 ML INLINE SCH ×8 (03:00→22:29)
[2019-11-24 04:48] LABS: BASOPHILS # (AUTO) 0.07 x10^3/uL (0-0.1); BASOPHILS % (AUTO) 1 % (0-1); EOSINOPHILS # (AUTO) 0.73 x10^3/uL (0-0.4); EOSINOPHILS % (AUTO) 7 % (1-7); LYMPHOCYTES # (AUTO) 2.25 x10^3/uL (1-3.4); LYMPHOCYTES % (AUTO) 20 % (22-44); MD NO; MEAN CORPUSCULAR HEMOGLOBIN 29.8 pg (27.0-34.8); MEAN CORPUSCULAR HGB CONC 32.4 g/dL (32.4-35.8); MEAN CORPUSCULAR VOLUME 92.1 fL (80-100); MEAN PLATELET VOLUME 9.9 fL (7.4-10.4); MONOCYTES # (AUTO) 0.86 x10^3/uL (0.2-0.8); MONOCYTES % (AUTO) 8 % (2-9); NEUTROPHILS # (AUTO) 7.42 x10^3/uL (1.8-6.8); NEUTROPHILS % (AUTO) 66 % (42-75); PLATELET COUNT 218 x10^3/uL (130-400); RED BLOOD COUNT 3.87 x10^6/uL (3.82-5.3); RED CELL DISTRIBUTION WIDTH 14.9 % (9.6-15.2)
[2019-11-24 06:25] LABS: ANION GAP 6 mmol/L (5-15); CALCIUM 8.4 mg/dL (8.5-10.1); CHLORIDE 116 mmol/L (98-107)
[2019-11-24 06:29] LABS: ALANINE AMINOTRANSFERASE 616 U/L (12-78); ALKALINE PHOSPHATASE 89 U/L (45-117); BILIRUBIN,TOTAL 0.5 mg/dL (0.2-1.0); CREATININE 0.73 mg/dL (0.55-1.02); TOTAL PROTEIN 6.7 g/dL (6.4-8.2)
[2019-11-24] MEDS: FENTANYL PF 1,000 MCG in SODIUM CHLORIDE 0.9% 80 ML IV PRN (08:07)
[2019-11-24] MEDS: FAMOTIDINE 20 MG/2 ML IVPush SCH (08:08)
[2019-11-24] MEDS: SODIUM CHLORIDE FLUSH 10ML SYR IVF SCH ×2 (08:08→21:35)
[2019-11-24] MEDS: POTASSIUM CHLORIDE 10% 40 MEQ/30 ML UDC PO SCH ×2 (08:08→21:35)
[2019-11-24] MEDS ORDERED: GADOTERATE 10 MMOL/20 ML VIAL ONE (09:17)
[2019-11-24] MEDS: CEFTRIAXONE PMX 1GM/50ML 50 ML IV SCH (15:26)
[2019-11-24] MEDS: MIDAZOLAM IN 0.9 % SOD.CHLORID 100 ML IV PRN (21:35)
[2019-11-25] MEDS: HEPARIN 5,000 UNITS/ML, 1ML SQ SCH ×3 (00:45→16:09)
[2019-11-25] MEDS: ALBUTEROL/IPRATROPIUM 2.5MG/0.5MG, 3 ML INLINE SCH ×5 (02:36→22:25)
[2019-11-25 05:12] LABS: BASOPHILS # (AUTO) 0.05 x10^3/uL (0-0.1); BASOPHILS % (AUTO) 0 % (0-1); EOSINOPHILS # (AUTO) 0.93 x10^3/uL (0-0.4); EOSINOPHILS % (AUTO) 8 % (1-7); LYMPHOCYTES # (AUTO) 2.46 x10^3/uL (1-3.4); LYMPHOCYTES % (AUTO) 21 % (22-44); MD NO; MEAN CORPUSCULAR HEMOGLOBIN 29.8 pg (27.0-34.8); MEAN CORPUSCULAR HGB CONC 32.2 g/dL (32.4-35.8); MEAN CORPUSCULAR VOLUME 92.5 fL (80-100); MEAN PLATELET VOLUME 10.4 fL (7.4-10.4); MONOCYTES # (AUTO) 0.75 x10^3/uL (0.2-0.8); MONOCYTES % (AUTO) 6 % (2-9); NEUTROPHILS # (AUTO) 7.49 x10^3/uL (1.8-6.8); NEUTROPHILS % (AUTO) 64 % (42-75); PLATELET COUNT 225 x10^3/uL (130-400); RED BLOOD COUNT 3.73 x10^6/uL (3.82-5.3); RED CELL DISTRIBUTION WIDTH 15.3 % (9.6-15.2)
[2019-11-25 05:24] LABS: ALANINE AMINOTRANSFERASE 369 U/L (12-78); ALBUMIN 2.8 g/dL (3.4-5.0); ANION GAP 5 mmol/L (5-15); CALCIUM 8.5 mg/dL (8.5-10.1); CHLORIDE 116 mmol/L (98-107); CREATININE 0.62 mg/dL (0.55-1.02)
[2019-11-25 05:27] LABS: ALKALINE PHOSPHATASE 90 U/L (45-117); BILIRUBIN,TOTAL 0.5 mg/dL (0.2-1.0); TOTAL PROTEIN 6.4 g/dL (6.4-8.2)
[2019-11-25] MEDS: POTASSIUM CHLORIDE 10% 40 MEQ/30 ML UDC PO SCH ×2 (07:47→21:29)
[2019-11-25] MEDS: FAMOTIDINE 20 MG/2 ML IVPush SCH (07:47)
[2019-11-25] MEDS: SODIUM CHLORIDE FLUSH 10ML SYR IVF SCH ×2 (07:48→21:30)
[2019-11-25] MEDS: FENTANYL PF 1,000 MCG in SODIUM CHLORIDE 0.9% 80 ML IV PRN (09:10)
[2019-11-25] MEDS: CEFTRIAXONE PMX 1GM/50ML 50 ML IV SCH (16:09)
[2019-11-25] MEDS: PROPOFOL 100 ML IV PRN (20:51)
[2019-11-26] MEDS: HEPARIN 5,000 UNITS/ML, 1ML SQ SCH ×4 (00:19→23:45)
[2019-11-26] MEDS: PROPOFOL 100 ML IV PRN (02:37)
[2019-11-26] MEDS: FENTANYL PF 1,000 MCG in SODIUM CHLORIDE 0.9% 80 ML IV PRN (02:37)
[2019-11-26] MEDS: ALBUTEROL/IPRATROPIUM 2.5MG/0.5MG, 3 ML INLINE SCH ×2 (02:50→06:55)
[2019-11-26 04:27] LABS: BASOPHILS # (AUTO) 0.06 x10^3/uL (0-0.1); BASOPHILS % (AUTO) 0 % (0-1); EOSINOPHILS # (AUTO) 0.94 x10^3/uL (0-0.4); EOSINOPHILS % (AUTO) 7 % (1-7); LYMPHOCYTES # (AUTO) 2.86 x10^3/uL (1-3.4); LYMPHOCYTES % (AUTO) 22 % (22-44); MD NO; MEAN CORPUSCULAR HEMOGLOBIN 29.4 pg (27.0-34.8); MEAN CORPUSCULAR HGB CONC 31.8 g/dL (32.4-35.8); MEAN CORPUSCULAR VOLUME 92.5 fL (80-100); MEAN PLATELET VOLUME 9.9 fL (7.4-10.4); MONOCYTES # (AUTO) 0.72 x10^3/uL (0.2-0.8); MONOCYTES % (AUTO) 6 % (2-9); NEUTROPHILS # (AUTO) 8.61 x10^3/uL (1.8-6.8); NEUTROPHILS % (AUTO) 65 % (42-75); PLATELET COUNT 232 x10^3/uL (130-400); RED BLOOD COUNT 3.85 x10^6/uL (3.82-5.3); RED CELL DISTRIBUTION WIDTH 14.9 % (9.6-15.2)
[2019-11-26 04:39] LABS: ALANINE AMINOTRANSFERASE 272 U/L (12-78); ALBUMIN 3.1 g/dL (3.4-5.0); ANION GAP 6 mmol/L (5-15); CALCIUM 8.8 mg/dL (8.5-10.1); CHLORIDE 111 mmol/L (98-107)
[2019-11-26 04:41] LABS: ALKALINE PHOSPHATASE 103 U/L (45-117); BILIRUBIN,TOTAL 0.4 mg/dL (0.2-1.0); CREATININE 0.59 mg/dL (0.55-1.02); TOTAL PROTEIN 6.9 g/dL (6.4-8.2)
[2019-11-26] MEDS: POTASSIUM CHLORIDE 10% 40 MEQ/30 ML UDC PO SCH (08:43)
[2019-11-26] MEDS: FAMOTIDINE 20 MG/2 ML IVPush SCH (08:43)
[2019-11-26] MEDS: SODIUM CHLORIDE FLUSH 10ML SYR IVF SCH ×2 (08:44→19:45)
[2019-11-26] MEDS ORDERED: FUROSEMIDE 40 MG/4 ML IV ONE (09:00)
[2019-11-26] MEDS ORDERED: ALBUTEROL/IPRATROPIUM 2.5MG/0.5MG, 3 ML NPPB SCH (11:00)
[2019-11-26] MEDS ORDERED: ALBUTEROL/IPRATROPIUM 2.5MG/0.5MG, 3 ML NPPB PRN (11:00)
[2019-11-26] MEDS: ALBUTEROL/IPRATROPIUM 2.5MG/0.5MG, 3 ML NPPB SCH ×3 (11:00→19:50)
[2019-11-26] MEDS: CEFTRIAXONE PMX 1GM/50ML 50 ML IV SCH (15:57)
[2019-11-26 17:11] VITALS: BP 127/86
[2019-11-26 18:34] VITALS: BP 131/82
[2019-11-27 00:22] VITALS: BP 132/79
[2019-11-27] MEDS: OXYcodone IR 5MG TABLET PO PRN ×2 (04:01→22:02)
[2019-11-27] MEDS: ALBUTEROL/IPRATROPIUM 2.5MG/0.5MG, 3 ML NPPB SCH ×4 (06:35→19:25)
[2019-11-27 07:22] VITALS: BP 128/86
[2019-11-27 07:24] VITALS: BP 113/76
[2019-11-27] MEDS: HEPARIN 5,000 UNITS/ML, 1ML SQ SCH ×3 (08:10→23:22)
[2019-11-27] MEDS: SODIUM CHLORIDE FLUSH 10ML SYR IVF SCH ×2 (08:13→20:15)
[2019-11-27 13:01] VITALS: BP 106/71
[2019-11-27] MEDS: CEFTRIAXONE PMX 1GM/50ML 50 ML IV SCH (16:49)
[2019-11-27 18:39] VITALS: BP 113/76
[2019-11-28] VITALS: BP 134/84
[2019-11-28 05:36] LABS: ANION GAP 8 mmol/L (5-15); CALCIUM 8.9 mg/dL (8.5-10.1); CHLORIDE 105 mmol/L (98-107); CREATININE 0.64 mg/dL (0.55-1.02)
[2019-11-28 05:39] LABS: BASOPHILS # (AUTO) 0.05 x10^3/uL (0-0.1); BASOPHILS % (AUTO) 0 % (0-1); EOSINOPHILS # (AUTO) 0.83 x10^3/uL (0-0.4); EOSINOPHILS % (AUTO) 6 % (1-7); LYMPHOCYTES # (AUTO) 3.15 x10^3/uL (1-3.4); LYMPHOCYTES % (AUTO) 24 % (22-44); MD NO; MEAN CORPUSCULAR HEMOGLOBIN 29.5 pg (27.0-34.8); MEAN CORPUSCULAR HGB CONC 32.3 g/dL (32.4-35.8); MEAN CORPUSCULAR VOLUME 91.3 fL (80-100); MEAN PLATELET VOLUME 10.6 fL (7.4-10.4); MONOCYTES # (AUTO) 0.87 x10^3/uL (0.2-0.8); MONOCYTES % (AUTO) 7 % (2-9); NEUTROPHILS # (AUTO) 8.47 x10^3/uL (1.8-6.8); NEUTROPHILS % (AUTO) 63 % (42-75); PLATELET COUNT 251 x10^3/uL (130-400); RED BLOOD COUNT 4.39 x10^6/uL (3.82-5.3); RED CELL DISTRIBUTION WIDTH 14.5 % (9.6-15.2)
[2019-11-28] MEDS: ALBUTEROL/IPRATROPIUM 2.5MG/0.5MG, 3 ML NPPB SCH ×4 (06:54→19:09)
[2019-11-28 07:42] VITALS: BP 123/79
[2019-11-28] MEDS: HEPARIN 5,000 UNITS/ML, 1ML SQ SCH ×2 (08:48→16:33)
[2019-11-28] MEDS: SODIUM CHLORIDE FLUSH 10ML SYR IVF SCH ×2 (09:09→20:39)
[2019-11-28 13:13] VITALS: BP 116/76
[2019-11-28] MEDS: CEFTRIAXONE PMX 1GM/50ML 50 ML IV SCH (16:33)
[2019-11-28] MEDS ORDERED: BUPR150T73 PO (17:06)
[2019-11-28 19:30] VITALS: BP 113/82
[2019-11-28] MEDS: BUPROPION SR 150 MG TABLET PO SCH (20:38)
[2019-11-28] MEDS: QUETIAPINE 100MG TABLET PO PRN (21:25)
[2019-11-29 00:21] VITALS: BP 108/62
[2019-11-29] MEDS: HEPARIN 5,000 UNITS/ML, 1ML SQ SCH ×4 (00:21→20:16)
[2019-11-29 05:14] LABS: ANION GAP 10 mmol/L (5-15); CHLORIDE 106 mmol/L (98-107); CREATININE 0.74 mg/dL (0.55-1.02)
[2019-11-29 05:18] LABS: BASOPHILS # (AUTO) 0.04 x10^3/uL (0-0.1); BASOPHILS % (AUTO) 0 % (0-1); EOSINOPHILS # (AUTO) 0.56 x10^3/uL (0-0.4); EOSINOPHILS % (AUTO) 5 % (1-7); LYMPHOCYTES # (AUTO) 3.37 x10^3/uL (1-3.4); LYMPHOCYTES % (AUTO) 32 % (22-44); MD NO; MEAN CORPUSCULAR HEMOGLOBIN 29.5 pg (27.0-34.8); MEAN CORPUSCULAR HGB CONC 32.1 g/dL (32.4-35.8); MEAN CORPUSCULAR VOLUME 91.9 fL (80-100); MEAN PLATELET VOLUME 10.6 fL (7.4-10.4); MONOCYTES # (AUTO) 0.62 x10^3/uL (0.2-0.8); MONOCYTES % (AUTO) 6 % (2-9); NEUTROPHILS # (AUTO) 5.97 x10^3/uL (1.8-6.8); NEUTROPHILS % (AUTO) 57 % (42-75); PLATELET COUNT 266 x10^3/uL (130-400); RED BLOOD COUNT 4.18 x10^6/uL (3.82-5.3); RED CELL DISTRIBUTION WIDTH 14.9 % (9.6-15.2)
[2019-11-29 06:35] VITALS: BP 103/72
[2019-11-29] MEDS: ALBUTEROL/IPRATROPIUM 2.5MG/0.5MG, 3 ML NPPB SCH ×4 (07:10→19:05)
[2019-11-29] MEDS: PAROXETINE 20 MG TABLET PO SCH (08:13)
[2019-11-29] MEDS: BUPROPION SR 150 MG TABLET PO SCH ×2 (08:13→20:07)
[2019-11-29] MEDS: SODIUM CHLORIDE FLUSH 10ML SYR IVF SCH ×2 (09:00→20:07)
[2019-11-29 12:57] VITALS: BP 122/84
[2019-11-29] MEDS: CEFTRIAXONE PMX 1GM/50ML 50 ML IV SCH (16:25)
[2019-11-29] MEDS ORDERED: POTASSIUM CHLORIDE 20 MEQ TAB.ER.PRT PO ONE (18:30)
[2019-11-29] MEDS: QUETIAPINE 100MG TABLET PO PRN (20:07)
[2019-11-29 20:12] VITALS: BP 123/82
[2019-11-30 00:18] VITALS: BP 107/71
[2019-11-30 04:44] LABS: BASOPHILS # (AUTO) 0.04 x10^3/uL (0-0.1); BASOPHILS % (AUTO) 0 % (0-1); EOSINOPHILS # (AUTO) 0.55 x10^3/uL (0-0.4); EOSINOPHILS % (AUTO) 6 % (1-7); LYMPHOCYTES % (AUTO) 28 % (22-44); MD NO; MEAN CORPUSCULAR HEMOGLOBIN 29.9 pg (27.0-34.8); MEAN CORPUSCULAR HGB CONC 32.4 g/dL (32.4-35.8); MEAN CORPUSCULAR VOLUME 92.4 fL (80-100); MEAN PLATELET VOLUME 10.5 fL (7.4-10.4); MONOCYTES # (AUTO) 0.77 x10^3/uL (0.2-0.8); MONOCYTES % (AUTO) 8 % (2-9); NEUTROPHILS # (AUTO) 5.82 x10^3/uL (1.8-6.8); NEUTROPHILS % (AUTO) 58 % (42-75); PLATELET COUNT 264 x10^3/uL (130-400); RED BLOOD COUNT 4.09 x10^6/uL (3.82-5.3); RED CELL DISTRIBUTION WIDTH 14.4 % (9.6-15.2)
[2019-11-30 04:55] LABS: ANION GAP 10 mmol/L (5-15); CALCIUM 8.8 mg/dL (8.5-10.1); CHLORIDE 109 mmol/L (98-107)
[2019-11-30 04:57] LABS: CREATININE 0.67 mg/dL (0.55-1.02)
[2019-11-30 06:27] VITALS: BP 106/69
[2019-11-30] MEDS: ALBUTEROL/IPRATROPIUM 2.5MG/0.5MG, 3 ML NPPB SCH ×3 (07:10→14:00)
[2019-11-30] MEDS: HEPARIN 5,000 UNITS/ML, 1ML SQ SCH ×2 (07:57→16:00)
[2019-11-30] MEDS: PAROXETINE 20 MG TABLET PO SCH ×2 (07:58→11:46)
[2019-11-30] MEDS: BUPROPION SR 150 MG TABLET PO SCH ×2 (07:58→11:46)
[2019-11-30] MEDS ORDERED: REGADENOSON 0.4 MG/5 ML SYRINGE ONE (08:57)
[2019-11-30] MEDS: SODIUM CHLORIDE FLUSH 10ML SYR IVF SCH (09:00)
[2019-11-30 10:42] LABS: ALBUMIN 3.4 g/dL (3.4-5.0); BILIRUBIN, DIRECT 0.1 mg/dL (0.1-0.2)
[2019-11-30 10:45] LABS: BILIRUBIN,INDIRECT 0.6 mg/dL (0.0-2.0); BILIRUBIN,TOTAL 0.7 mg/dL (0.2-1.0); TOTAL PROTEIN 7.4 g/dL (6.4-8.2)
[2019-11-30 12:02] VITALS: BP 123/81
[2019-11-30] MEDS: CEFTRIAXONE PMX 1GM/50ML 50 ML IV SCH (16:00)
== END 2019-11-30 17:11 | disposition home or self-care (01) | DRG 871 ==
LOC: ED 16:48 → EDIP 16:55 → ICU 19:32 → CCU 11-25 09:47 → 4EST 11-26 17:08
PROVIDERS: ADMIT Internal Medicine; ATTEND Hospitalist
PROC: 5A1945Z Respiratory Ventilation, 24-96 Consecutive Hours (ICD-10-PCS; principal; 2019-11-20)
DX: A41.89 Other specified sepsis (principal); G93.41 Metabolic encephalopathy; I21.A1 Myocardial infarction type 2; J15.4 Pneumonia due to other streptococci; J96.01 Acute respiratory failure with hypoxia; K72.00 Acute and subacute hepatic failure without coma; N17.0 Acute kidney failure with tubular necrosis; I50.23 Acute on chronic systolic (congestive) heart failure; I13.0 Hypertensive heart and chronic kidney disease with heart failure and stage 1 through stage 4 chronic kidney disease, or unspecified chronic kidney disease; K57.92 Diverticulitis of intestine, part unspecified, without perforation or abscess without bleeding; Z99.11 Dependence on respirator [ventilator] status; E66.01 Morbid (severe) obesity due to excess calories; E78.1 Pure hyperglyceridemia; E87.6 Hypokalemia; F32.9 Major depressive disorder, single episode, unspecified; F41.9 Anxiety disorder, unspecified; G89.29 Other chronic pain; N18.9 Chronic kidney disease, unspecified; J45.909 Unspecified asthma, uncomplicated; Z82.49 Family history of ischemic heart disease and other diseases of the circulatory system; Z83.3 Family history of diabetes mellitus; Z87.891 Personal history of nicotine dependence; Z90.710 Acquired absence of both cervix and uterus; Z90.49 Acquired absence of other specified parts of digestive tract; Z98.51 Tubal ligation status; Z79.899 Other long term (current) drug therapy; Z03.818 Encounter for observation for suspected exposure to other biological agents ruled out; Z88.8 Allergy status to other drugs, medicaments and biological substances; Z68.35 Body mass index [BMI] 35.0-35.9, adult
CPT/HCPCS: 36415; 36600; 74018; 84145; 96372; 99291; J3490; 70553; 71045; 71250; 76700; 78452; 80048; 80053; 80076; 80307; 81001; 82140; 82728; 82803; 83036; 83605; 83615; 83735; 84100; 84134; 84439; 84443; 84478; 84484; 85025; 85049; 85379; 85384; 85610; 85730; 86140; 87040; 87070; 87081; 87086; 87147; 87205; 87635; 93005; 93017; 93308; 94002; 94003; 94640; G0378; J0456; J0696; J1644; J1940; J2250; J2704; J2785; J3010; A9502; A9575; J0360; J7030; J7040; J7050; U0001-CS

== ENCOUNTER → 2020-04-15 | Outpatient (CLI) | payer BC ==
[~2020-04-15] MED LIST changes: +ALBU8.5H8 INH; +BUPR150T73 PO; +DIAZ5TAB PO; +FURO40TA6 PO; +LEVO100T PO; +potassium PO
[2020-04-15 11:11] LABS: BASOPHILS % (AUTO) 1 % (0-1); EOSINOPHILS % (AUTO) 6 % (1-7); LYMPHOCYTES % (AUTO) 32 % (22-44); MEAN CORPUSCULAR HEMOGLOBIN 29.9 pg (27.0-34.8); MEAN CORPUSCULAR HGB CONC 32.5 g/dL (32.4-35.8); MEAN PLATELET VOLUME 9.2 fL (7.4-10.4); MONOCYTES % (AUTO) 5 % (2-9); NEUTROPHILS % (AUTO) 55 % (42-75); PLATELET COUNT 315 x10^3/uL (130-400); RED BLOOD COUNT 4.45 x10^6/uL (3.82-5.3)
[2020-04-15 11:13] LABS: MD NO
[2020-04-15 11:19] LABS: INTERNATIONAL NORMALIZED RATIO 0.95 (0.93-1.1); PROTHROMBIN TIME 9.8 Seconds (9.6-11.5)
[2020-04-15 11:20] LABS: ALBUMIN 4.1 g/dL (3.4-5.0); ANION GAP 4 mmol/L (5-15); CALCIUM 9.4 mg/dL (8.5-10.1); CHLORIDE 106 mmol/L (98-107)
[2020-04-15 11:24] LABS: ALANINE AMINOTRANSFERASE 14 U/L (12-78); ALKALINE PHOSPHATASE 111 U/L (45-117); BILIRUBIN,TOTAL 0.3 mg/dL (0.2-1.0); CREATININE 0.89 mg/dL (0.55-1.02); TOTAL PROTEIN 8.1 g/dL (6.4-8.2)
== END | disposition home or self-care (01) ==
LOC: STAR 09:49
PROVIDERS: ATTEND Orthopaedic Surgery
DX: Z01.812 Encounter for preprocedural laboratory examination (principal); Z20.828 Contact with and (suspected) exposure to other viral communicable diseases; M17.11 Unilateral primary osteoarthritis, right knee
CPT/HCPCS: 36415; 80053; 83036; 85025; 85610; 85730; 87081; 87635; 93005

== ENCOUNTER 2020-04-20 08:05 | Observation (INO) | payer BC ==
[~2020-04-20] VITALS: Ht 165.1 cm; Wt 94.0 kg
[~2020-04-20 08:05] MED LIST changes: +ACETAMINOPHEN 650 MG/20.3 ML UDC PO PRN; +ALBUTEROL HFA 90 MCG/SPRAY INH PRN; +BISACODYL 10 MG SUPP PR PRN; +CEFAZOLIN 1,000 MG ONE; +CEFAZOLIN PMX 2GM/50ML 50 ML IVPB SCH; +DEXAMETHASONE 4 MG/ML, 1ML ONE; +DIAZEPAM 5 MG TABLET PO PRN; +DIPHENHYDRAMINE 50 MG CAPSULE PO PRN; +EPINEPHRINE 1 MG/ML, 1ML ONE; +HYDROcodone/APAP 5/325 TABLET PO PRN; +HYDROmorphone 1 MG/ML, 1ML INJ IV PRN; +KETOROLAC 60 MG/2 ML ONE; +MAGNESIUM HYDROXIDE 8%, 30ML UDC PO PRN; +ONDANSETRON 2MG/ML, 2ML IV PRN; +ONDANSETRON 2MG/ML, 2ML ONE; +ONDANSETRON 4 MG TABLET PO PRN; +OXYcodone IR 5MG TABLET PO PRN; +PROPOFOL 10 MG/ML, 20ML ONE; +ROCURONIUM 10MG/ML,5ML ONE; +ROPIvacaine/PF 0.5%, 20 ML ONE; +ROPIvacaine/PF 0.5%, 30 ML ONE; +SENNA/DOCUSATE TABLET PO PRN; +SODIUM CHLORIDE 0.9% 50 ML ONE; +SUGAMMADEX 200 MG/2 ML IVPush ONE; +TRANEXAMIC ACID 100 MG/ML, 10ML ONE; +VANCOMYCIN 1,000 MG ONE; +ZOLPIDEM 5MG TABLET PO PRN
[2020-04-20] MEDS ORDERED: MIDAZOLAM 1 MG/ML, 2ML ONE (08:38)
[2020-04-20] MEDS ORDERED: FENTANYL PF 250 MCG/5ML ONE (08:38)
[2020-04-20 08:54] VITALS: BP 136/87
[2020-04-20] MEDS: GABAPENTIN 300 MG CAPSULE PO SCH ×2 (09:00→17:49)
[2020-04-20] MEDS ORDERED: ACETAMINOPHEN 500 MG TABLET PO ONE (09:00)
[2020-04-20] MEDS ORDERED: CHLORHEXIDINE 15 ML UDC MM ONE (09:00)
[2020-04-20] MEDS ORDERED: FUROSEMIDE 40 MG TABLET PO SCH (09:00)
[2020-04-20] MEDS ORDERED: LACTATED RINGERS 1,000 ML IV SCH (09:00)
[2020-04-20] MEDS ORDERED: DOCUSATE 100 MG CAPSULE PO SCH (09:00)
[2020-04-20] MEDS ORDERED: ONDANSETRON 2MG/ML, 2ML IVPush PRN (11:30)
[2020-04-20] MEDS ORDERED: METOCLOPRAMIDE 5 MG/ML, 2ML IV PRN (11:30)
[2020-04-20] MEDS ORDERED: KETOROLAC 30 MG/1 ML IV PRN (11:30)
[2020-04-20] MEDS ORDERED: OXYcodone 5 MG/5 ML ORAL.SOL UDC PO PRN (11:30)
[2020-04-20] MEDS ORDERED: HYDROmorphone 1 MG/ML, 1ML INJ IV PRN (11:30)
[2020-04-20] MEDS ORDERED: MEPERIDINE/PF 25MG/0.5ML IVPush PRN (11:30)
[2020-04-20] MEDS ORDERED: DIAZEPAM 5 MG/ML, 2ML IV PRN ×2 (11:30)
[2020-04-20] MEDS ORDERED: hydrALAzine 20 MG/ML, 1ML IV PRN (11:30)
[2020-04-20] MEDS ORDERED: ALBUTEROL SULFATE 2.5 MG/3 ML NPPB PRN (11:30)
[2020-04-20] MEDS ORDERED: PROMETHAZINE 25 MG/ML, 1ML IV PRN (11:30)
[2020-04-20] MEDS ORDERED: LABETALOL 5MG/ML, 20ML IV PRN (11:30)
[2020-04-20] MEDS: FENTANYL PF 100 MCG/2ML IV PRN ×3 (12:25→12:48)
[2020-04-20] MEDS ORDERED: FENTANYL PF 100 MCG/2ML ONE ×2 (12:28→12:45)
[2020-04-20] MEDS ORDERED: OXYcodone 5 MG/5 ML ORAL.SOL UDC ONE (12:28)
[2020-04-20 17:10] VITALS: BP 112/72
[2020-04-20] MEDS ORDERED: OXYC5TAB3 PO (17:51)
[2020-04-20] MEDS ORDERED: TRAM50TA2 PO (17:52)
[2020-04-20] MEDS ORDERED: MELO7.5T31 PO (17:52)
[2020-04-20] MEDS ORDERED: ASPIRIN 81 MG TABLET EC PO SCH (18:00)
[2020-04-20] MEDS ORDERED: NS + 20MEQ KCL 1,000 ML IV SCH (18:10)
[2020-04-20] MEDS ORDERED: CEFAZOLIN PMX 2GM/50ML 50 ML IVPB SCH (19:00)
[2020-04-20] MEDS ORDERED: QUETIAPINE 100MG TABLET PO SCH (21:00)
[2020-04-20] MEDS ORDERED: PAROXETINE 20 MG TABLET PO SCH (21:00)
[2020-04-21] MEDS ORDERED: LEVOTHYROXINE 100 MCG TABLET PO SCH (06:00)
[2020-04-21] MEDS ORDERED: DEXAMETHASONE 4 MG/ML, 1ML IVPush SCH (06:00)
== END 2020-04-20 18:10 | disposition home or self-care (01) ==
LOC: OUT 08:05 → ORIP 12:24 → 4NE 17:26
PROVIDERS: ADMIT Orthopaedic Surgery; ATTEND Orthopaedic Surgery
DX: M17.11 Unilateral primary osteoarthritis, right knee (principal); J45.909 Unspecified asthma, uncomplicated; I25.10 Atherosclerotic heart disease of native coronary artery without angina pectoris; I25.2 Old myocardial infarction; Z87.891 Personal history of nicotine dependence; Z79.899 Other long term (current) drug therapy
CPT/HCPCS: 27447; 97110; 97161; 97165; C1713; C1776; G0378; J0171; J0690; J1100; J1885; J2250; J2405; J2704; J2795; J3010; J3370; J7120